=== PATIENT | female | born 1960 | race American Indian/Alaskan Native ===

== ENCOUNTER 2017-02-11 23:58 | Emergency (ER) | payer MEDICARE, MEDICAID ==
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
== END 2017-02-12 02:15 | disposition home or self-care (01) ==
LOC: DL.ED 23:58
DX: M19.012 Primary osteoarthritis, left shoulder (principal); F17.210 Nicotine dependence, cigarettes, uncomplicated
CPT/HCPCS: 73030-LT; 99282; 99283

== ENCOUNTER 2017-10-07 23:35 | Emergency (ER) | payer MEDICARE, MEDICAID ==
[2017-10-08] MEDS ORDERED: Triamcinolone Acetonide 0.1% Crm 15 GM Tube TOP ONE (00:31)
[2017-10-08] MEDS ORDERED: diphenhydrAMINE 25 MG Tab PO ONE (00:31)
--- NOTE | 2017-10-08 00:34 | EDM.PDOC ---
ED HPI GENERAL MEDICAL PROBLEM - General Chief Complaint: Skin Complaint Stated Complaint: ENMANUEL CALLAHAN [id number] Time Seen by Provider: 10/08/17 00:22 Source of Information: Reports: Patient, RN, RN Notes Reviewed History Limitations: Reports: No Limitations - History of Present Illness INITIAL COMMENTS - FREE TEXT/NARRATIVE: Pt to ER with c/o poison alison rash on her lower legs and face. She states she and her granddaughter (also being seen) were out picking September berr on and Monday, and the rash developed today. She states she is having a lot of itching. Denies any other problems at this time. - Related Data Allergies Allergy/AdvReac Type Severity Reaction Status Date / Time ibuprofen [From Motrin] Allergy Anaphylactic Verified 10/07/17 23:52 Shock Home Meds: Home Meds . [No Known Home Meds] 02/12/17 [History] Past Medical History Musculoskeletal History: Reports: Arthritis, Back Pain, Chronic, RA Social & Family History - Tobacco Use Smoking Status *Q: Current Every Day Smoker Years of Tobacco use: 28 Packs/Tins Daily: 0.1 Second Hand Smoke Exposure: Yes - Caffeine Use Caffeine Use: Reports: Coffee, Soda - Recreational Drug Use Recreational Drug Use: No ED ROS GENERAL - Review of Systems Review Of Systems: ROS reveals no pertinent complaints other than HPI. ED EXAM, SKIN/RASH Exam: See Below Exam Limited By: No Limitations General Appearance: Alert, WD/WN, Mild Distress Eye Exam: Bilateral Eye: EOMI, Normal Inspection Ears: Normal External Exam, Hearing Grossly Normal Nose: Normal Inspection Throat/Mouth: Normal Inspection, Normal Voice, No Airway Compromise Head: Atraumatic, Normocephalic Neck: Normal Inspection, Supple, Non-Tender, Full Range of Motion Respiratory/Chest: No Respiratory Distress, Lungs Clear, Normal Breath Sounds, No Accessory Muscle Use, Chest Non-Tender Cardiovascular: Normal Peripheral Pulses, Regular Rate, Rhythm, No Edema, No Gallop, No JVD, No Murmur, No Rub Peripheral Pulses: 2+: Radial (L), Radial (R) GI/Abdominal: Normal Bowel Sounds, Soft, Non-Tender (Female) Exam: Deferred Rectal (Female) Exam: Deferred Back Exam: Normal Inspection, Full Range of Motion, NT Extremities: Normal Range of Motion, Non-Tender, No Pedal Edema, Normal Capillary Refill Neurological: Alert, Oriented, Normal Cognition, Normal Gait, Normal Reflexes, No Motor/Sensory Deficits Psychiatric: Normal Affect, Normal Mood Skin: Warm, Dry, Rash (patchy erythematous macular rash to lower legs bilaterally and the left side of the face. ) Location, Skin: Face, Upper Extremity, Right, Lower Extremity, Left Characteristics: Macular Associated features: Warmth Lymphatic: No Adenopathy Course - Vital Signs Last Recorded V/S: Last Vital Signs Temp 97.4 F 10/07/17 23:49 Pulse 75 10/07/17 23:49 Resp 18 10/07/17 23:49 BP 130/66 10/07/17 23:49 Pulse Ox 100 10/07/17 23:49 - Orders/Labs/Meds Meds: Medications Discontinued Medications Generic Name Dose Route Start Last Admin Trade Name Milo PRN Reason Stop Dose Admin Diphenhydramine HCl 25 mg 10/08/17 00:31 10/08/17 00:37 Benadryl PO 10/08/17 00:32 25 mg ONETIME ONE Administration Triamcinolone Acetonide 15 gm 10/08/17 00:31 10/08/17 00:37 Triamcinolone Acetonide 0.1% Crm TOP 10/08/17 00:32 15 gm ONETIME ONE Administration Departure - Departure Time of Disposition: 00:33 Disposition: Home, Self-Care 01 Condition: Fair Clinical Impression: Contact dermatitis due to poison alison - Discharge Information Instructions: Poison Alison Dermatitis, [id number], Contact Dermatitis, Easy-to- Read Referrals: PCP,Unobtain [Primary Care Provider] - Forms: ED Department Discharge Additional Instructions: RX: Triamcinolone Topical May use Benadryl as directed for itching May use cold compresses to the affected areas as tolerated
== END 2017-10-08 00:44 | disposition home or self-care (01) ==
LOC: DL.ED 23:35
DX: Z88.6 Allergy status to analgesic agent (principal); F17.210 Nicotine dependence, cigarettes, uncomplicated; L25.5 Unspecified contact dermatitis due to plants, except food
CPT/HCPCS: 99282; A9270; 99283

== ENCOUNTER 2021-03-11 18:28 | Emergency (ER) | payer MEDICARE, MEDICAID ==
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
[2021-03-11] MEDS ORDERED: fentaNYL 100 MCG/2 ML SDV IVPUSH ONE (19:10)
--- NOTE | 2021-03-11 20:03 | CR ---
PROCEDURE INFORMATION: Exam: XR Left Hip Exam date and time: 03/11/2021 7:07 PM Age: 60 years old Clinical indication: Other: Fall onto hip; Left lower extremity deformity TECHNIQUE: Imaging protocol: XR Left hip. Views: 2 or 3 views hip with pelvis when performed. COMPARISON: No relevant prior studies available. FINDINGS: Bones/joints: There is a fracture of the distal left femoral neck with approximately 2.7 cm of superior displacement of the distal fracture fragment. No dislocation. Bones are diffusely osteopenic. Degenerative changes at both hips, moderate on the right and mild on the left. Mild degenerative changes of the right and left sacroiliac joints. Soft tissues: No soft tissue swelling. No radiopaque foreign body. IMPRESSION: 1. There is a fracture of the distal left femoral neck with approximately 2.7 cm of superior displacement of the distal fracture fragment. 2. Incidental/nonacute findings are listed in the report.
== END 2021-03-11 20:20 ==
LOC: DL.ED 18:28
DX: S72.002A Fracture of unspecified part of neck of left femur, initial encounter for closed fracture (principal); Z88.8 Allergy status to other drugs, medicaments and biological substances; Z87.891 Personal history of nicotine dependence; Z20.822 Contact with and (suspected) exposure to COVID-19; Y04.0XXA Assault by unarmed brawl or fight, initial encounter
CPT/HCPCS: 96374; 99284-25; J3010; U0002

== ENCOUNTER 2021-08-19 13:39 | Inpatient (IN) | payer MEDICARE, MEDICAID ==
[2021-08-19] MEDS ORDERED: methylPREDNISolone Sodium Succinate 125 MG/2 ML SDV IVPUSH ONE (13:51)
[2021-08-19] MEDS ORDERED: methylPREDNISolone Sodium Succinate 125 MG/2 ML SDV ONE (13:53)
[2021-08-19] MEDS ORDERED: Albuterol 0.083% 2.5 MG/3 ML Neb Soln NEB ONE (14:37)
[2021-08-19 15:06] LABS: ANION GAP 16.3 mEq/L (7-13); CHLORIDE,CL 108 mmol/L (98-107); SODIUM,NA 143 mmol/L (136-145)
[2021-08-19] MEDS ORDERED: Sodium Chloride 0.9% 1,000 ML IV ONE (16:03)
[2021-08-19 16:18] LABS: CORONAVIRUS COVID-19 NAA NEGATIVE (NEGATIVE)
[2021-08-19 16:57] LABS: AMPHETAMINES,URINE POSITIVE (NEGATIVE); BARBITURATES,URINE NEGATIVE (NEGATIVE); BENZODIAZEPINE,URINE NEGATIVE (NEGATIVE); MDMA (ECSTASY), URINE NEGATIVE (NEGATIVE); METHADONE,URINE NEGATIVE (NEGATIVE); METHAMPHETAMINES,URINE POSITIVE (NEGATIVE); OPIATES,URINE NEGATIVE (NEGATIVE); PHENCYCLIDINE,URINE NEGATIVE (NEGATIVE); TCA,URINE NEGATIVE (NEGATIVE)
[2021-08-19 16:58] LABS: OXYCODONE,URINE NEGATIVE (NEGATIVE)
[2021-08-19] MEDS ORDERED: cefTRIAXone 1 GM in Sodium Chloride 0.9% 50 ML IV ONE (17:05)
[2021-08-19] MEDS ORDERED: methylPREDNISolone Sodium Succinate 40 MG/1 ML SDV IVPUSH SCH (18:15)
[2021-08-19] MEDS ORDERED: Azithromycin 500 MG in Sodium Chloride 0.9% 250 ML IV SCH (18:15)
[2021-08-19] MEDS ORDERED: Ondansetron 4 MG/2 ML SDV IVPUSH PRN (18:19)
[2021-08-19] MEDS ORDERED: Acetaminophen 325 MG Tab PO PRN (18:19)
[2021-08-19] MEDS ORDERED: LORazepam 1 MG Tab PO PRN (18:41)
[2021-08-19] MEDS ORDERED: Potassium Chloride 10 MEQ Tab.ER PO ONE (18:41)
[2021-08-19] MEDS ORDERED: guaiFENesin 100 MG/5 ML Soln 5 ML UD Cup PO PRN (18:46)
[2021-08-19] MEDS: methylPREDNISolone Sodium Succinate 40 MG/1 ML SDV IVPUSH SCH (19:37)
[2021-08-19] MEDS: Acetaminophen/HYDROcodone 325-5 MG Tab PO PRN (19:37)
[2021-08-19] MEDS: Famotidine 20 MG Tab PO SCH (21:04)
[2021-08-19] MEDS: Sodium Chloride 0.9% 10 ML Syringe FLUSH SCH (21:05)
[2021-08-19] MEDS: Heparin Sodium 5,000 Units/ML Vial SUBCUT SCH (21:05)
[2021-08-19] MEDS: Pregabalin 50 MG Cap PO SCH (21:05)
[2021-08-20] MEDS: methylPREDNISolone Sodium Succinate 40 MG/1 ML SDV IVPUSH SCH (04:06)
[2021-08-20 05:47] LABS: ANION GAP 15.4 mEq/L (7-13); CHLORIDE,CL 111 mmol/L (98-107); SODIUM,NA 142 mmol/L (136-145)
[2021-08-20] MEDS: Famotidine 20 MG Tab PO SCH ×2 (08:36→21:25)
[2021-08-20] MEDS: Multivitamins with Iron/Calcium/Folic Acid/Minerals Tab PO SCH (08:36)
[2021-08-20] MEDS: Calcium Carbonate/Vitamin D3 1250 MG-5 MCG Tab PO SCH ×2 (08:36→17:37)
[2021-08-20] MEDS: Pregabalin 50 MG Cap PO SCH ×3 (08:36→21:25)
[2021-08-20] MEDS: Acetaminophen/HYDROcodone 325-5 MG Tab PO PRN ×4 (08:37→21:30)
[2021-08-20] MEDS: Sodium Chloride 0.9% 10 ML Syringe FLUSH SCH ×2 (08:39→21:26)
[2021-08-20] MEDS: Heparin Sodium 5,000 Units/ML Vial SUBCUT SCH ×3 (09:28→21:25)
[2021-08-20] MEDS ORDERED: Heparin Sodium 5,000 Units/ML Vial SUBCUT ONE (09:30)
[2021-08-20] MEDS: Sodium Chloride 0.9% 10 ML Syringe FLUSH PRN (09:40)
[2021-08-20] MEDS: cefTRIAXone 1 GM in Sodium Chloride 0.9% 50 ML IV SCH (09:40)
[2021-08-20] MEDS ORDERED: cefTRIAXone 1,000 MG in Sodium Chloride 0.9% 50 ML IV SCH (10:00)
[2021-08-20] MEDS ORDERED: guaiFENesin/Dextromethorphan 100-10 MG/5 ML Soln 5 ML Cup PO PRN (10:14)
[2021-08-20] MEDS: Lidocaine 5% 700 MG Patch TOP SCH (13:35)
[2021-08-20] MEDS: Lidocaine 5% Oint 35.44 GM Tube TOP SCH (14:22)
[2021-08-20] MEDS: Azithromycin 500 MG in Sodium Chloride 0.9% 250 ML IV SCH (17:58)
[2021-08-20] MEDS: Temazepam 15 MG Cap PO PRN (21:25)
[2021-08-21] MEDS: Pantoprazole 40 MG Tab.CR PO SCH (05:32)
[2021-08-21] MEDS: Acetaminophen/HYDROcodone 325-5 MG Tab PO PRN ×4 (05:32→21:56)
[2021-08-21] MEDS: Heparin Sodium 5,000 Units/ML Vial SUBCUT SCH ×3 (05:33→21:49)
[2021-08-21 06:04] LABS: ANION GAP 10.8 mEq/L (7-13); CHLORIDE,CL 114 mmol/L (98-107); SODIUM,NA 146 mmol/L (136-145)
[2021-08-21] MEDS: Calcium Carbonate/Vitamin D3 1250 MG-5 MCG Tab PO SCH ×2 (07:59→17:39)
[2021-08-21] MEDS: Lidocaine 5% 700 MG Patch TOP SCH (08:00)
[2021-08-21] MEDS: Lidocaine 5% Oint 35.44 GM Tube TOP SCH (08:00)
[2021-08-21] MEDS: Multivitamins with Iron/Calcium/Folic Acid/Minerals Tab PO SCH (08:01)
[2021-08-21] MEDS: Pregabalin 50 MG Cap PO SCH ×3 (08:01→21:43)
[2021-08-21] MEDS: Famotidine 20 MG Tab PO SCH ×2 (08:01→21:43)
[2021-08-21] MEDS: Sodium Chloride 0.9% 10 ML Syringe FLUSH SCH ×2 (08:11→21:51)
[2021-08-21] MEDS ORDERED: methylPREDNISolone Sodium Succinate 40 MG/1 ML SDV IVPUSH SCH (09:00)
[2021-08-21] MEDS: Sodium Chloride 0.9% 10 ML Syringe FLUSH PRN (09:51)
[2021-08-21] MEDS: cefTRIAXone 1 GM in Sodium Chloride 0.9% 50 ML IV SCH (09:51)
[2021-08-21] MEDS: Azithromycin 500 MG in Sodium Chloride 0.9% 250 ML IV SCH (17:46)
[2021-08-21] MEDS: Temazepam 15 MG Cap PO PRN (21:56)
[2021-08-22] MEDS: Heparin Sodium 5,000 Units/ML Vial SUBCUT SCH ×3 (06:05→21:05)
[2021-08-22] MEDS: Pantoprazole 40 MG Tab.CR PO SCH (06:05)
[2021-08-22 07:11] LABS: ANION GAP 8.9 mEq/L (7-13); CHLORIDE,CL 110 mmol/L (98-107); SODIUM,NA 142 mmol/L (136-145)
[2021-08-22] MEDS ORDERED: predniSONE 20 MG Tab PO ONE (08:00)
[2021-08-22] MEDS: Calcium Carbonate/Vitamin D3 1250 MG-5 MCG Tab PO SCH ×2 (08:36→17:35)
[2021-08-22] MEDS: Pregabalin 50 MG Cap PO SCH ×3 (08:36→20:11)
[2021-08-22] MEDS: Famotidine 20 MG Tab PO SCH ×2 (08:36→20:11)
[2021-08-22] MEDS: Multivitamins with Iron/Calcium/Folic Acid/Minerals Tab PO SCH (08:36)
[2021-08-22] MEDS: Lidocaine 5% 700 MG Patch TOP SCH (08:36)
[2021-08-22] MEDS: Lidocaine 5% Oint 35.44 GM Tube TOP SCH (08:39)
[2021-08-22] MEDS: Sodium Chloride 0.9% 10 ML Syringe FLUSH SCH ×2 (08:39→20:12)
[2021-08-22] MEDS: cefTRIAXone 1 GM in Sodium Chloride 0.9% 50 ML IV SCH (10:12)
[2021-08-22] MEDS: Sodium Chloride 0.9% 10 ML Syringe FLUSH PRN (10:12)
[2021-08-22] MEDS: Acetaminophen/HYDROcodone 325-5 MG Tab PO PRN ×2 (12:58→19:12)
[2021-08-22] MEDS: Azithromycin 500 MG in Sodium Chloride 0.9% 250 ML IV SCH (17:36)
[2021-08-22] MEDS: Temazepam 15 MG Cap PO PRN (21:05)
[2021-08-23] MEDS: Pantoprazole 40 MG Tab.CR PO SCH (05:15)
[2021-08-23] MEDS: Heparin Sodium 5,000 Units/ML Vial SUBCUT SCH (05:15)
[2021-08-23] MEDS: Acetaminophen/HYDROcodone 325-5 MG Tab PO PRN ×2 (05:15→10:16)
[2021-08-23 07:18] LABS: ANION GAP 13.7 mEq/L (7-13); CHLORIDE,CL 108 mmol/L (98-107); SODIUM,NA 143 mmol/L (136-145)
[2021-08-23] MEDS: Pregabalin 50 MG Cap PO SCH (08:24)
[2021-08-23] MEDS: Lidocaine 5% 700 MG Patch TOP SCH (08:25)
[2021-08-23] MEDS: Famotidine 20 MG Tab PO SCH (08:25)
[2021-08-23] MEDS: Multivitamins with Iron/Calcium/Folic Acid/Minerals Tab PO SCH (08:25)
[2021-08-23] MEDS: Calcium Carbonate/Vitamin D3 1250 MG-5 MCG Tab PO SCH (08:25)
[2021-08-23] MEDS: Lidocaine 5% Oint 35.44 GM Tube TOP SCH (08:28)
[2021-08-23] MEDS: Sodium Chloride 0.9% 10 ML Syringe FLUSH SCH (09:56)
[2021-08-23] MEDS: cefTRIAXone 1 GM in Sodium Chloride 0.9% 50 ML IV SCH (10:12)
[2021-08-23] MEDS ORDERED: Amoxicillin/Clavulanate K 875-125 MG Tab PO ONE (11:04)
== END 2021-08-23 13:06 | disposition home health service (06) | DRG 202 ==
LOC: DL.ED 13:39 → DL.MS 17:24
PROVIDERS: ADMIT Internal Medicine; ATTEND Internal Medicine
DX: J20.9 Acute bronchitis, unspecified (principal); F15.90 Other stimulant use, unspecified, uncomplicated; J18.9 Pneumonia, unspecified organism; T78.49XA Other allergy, initial encounter; M06.9 Rheumatoid arthritis, unspecified; Z88.8 Allergy status to other drugs, medicaments and biological substances; G89.29 Other chronic pain; M19.90 Unspecified osteoarthritis, unspecified site; M54.9 Dorsalgia, unspecified; F17.210 Nicotine dependence, cigarettes, uncomplicated; E87.6 Hypokalemia; F15.10 Other stimulant abuse, uncomplicated; Z20.822 Contact with and (suspected) exposure to COVID-19; Z98.890 Other specified postprocedural states; Z79.899 Other long term (current) drug therapy; Z79.52 Long term (current) use of systemic steroids; Z88.6 Allergy status to analgesic agent
CPT/HCPCS: 0240U; 36415; 71046; 80048; 80053; 80305; 81001; 83605; 84484; 85025; 87040; 87070; 87086; 87205; 93005; 94640; 96361; 96374; 96375; 97165; 99285; A9270-GY; J0456; J0696; J1644; J2920; J2930; J3490; J7030; J7050; J7512; J7613-GY

== ENCOUNTER 2022-04-12 13:01 | Emergency (ER) | payer MEDICARE, MEDICAID ==
[2022-04-12] MEDS ORDERED: Acetaminophen/HYDROcodone 325-10 MG Tab PO ONE (15:30)
[2022-04-12] MEDS ORDERED: Acetaminophen/oxyCODONE 325-5 MG Tab PO ONE (15:44)
== END 2022-04-12 16:00 | disposition home or self-care (01) ==
LOC: DL.ED 13:01
DX: G89.18 Other acute postprocedural pain (principal); M79.672 Pain in left foot; Z88.8 Allergy status to other drugs, medicaments and biological substances
CPT/HCPCS: 99283; A9270

== ENCOUNTER 2022-11-26 09:34 | Emergency (ER) | payer MEDICARE, MEDICAID ==
[2022-11-26] MEDS ORDERED: Acetaminophen/HYDROcodone 325-5 MG Tab PO ONE (10:05)
[2022-11-26] MEDS ORDERED: Dexamethasone 4 MG/ML SDV IM ONE (10:05)
== END 2022-11-26 10:46 | disposition home or self-care (01) ==
LOC: DL.ED 09:34
DX: G89.29 Other chronic pain (principal); M25.562 Pain in left knee; Z88.6 Allergy status to analgesic agent; Z88.8 Allergy status to other drugs, medicaments and biological substances
CPT/HCPCS: 96372; 99283; A9270; J1100; 99282

== ENCOUNTER 2025-01-17 10:05 | Emergency (ER) | payer MEDICARE | END 2025-01-17 10:30 | disposition left against medical advice (07) | LOC: DL.ED 10:05 | DX: M25.572 Pain in left ankle and joints of left foot (principal); Z88.6 Allergy status to analgesic agent; Z88.8 Allergy status to other drugs, medicaments and biological substances; E10.9 Type 1 diabetes mellitus without complications; X50.1XXA Overexertion from prolonged static or awkward postures, initial encounter | CPT/HCPCS: 99283 ==